=== PATIENT | male | born 1995 | race Caucasian/White ===

== ENCOUNTER 2018-05-28 15:47 | Emergency (ER) | payer OTHER ==
[2018-05-28 15:52] VITALS: BP 142/89
--- NOTE | 2018-05-28 15:58 | ER Report ---
History and Physical Time Seen By MD: 15:59 Hx. of Stated Complaint: pain for 2 months in left side; blood in stool this am; states that it has never happened before; current pain is dull and 3/10 HPI/ROS CHIEF COMPLAINT: Abdominal pain HISTORY OF PRESENT ILLNESS: 22-year-old male patient presents to emergency room with complaint of abdominal pain. Patient states pains been going on for the last 2 months. Patient states that he has noted the pain when he is at school, at night. He states he is not been able to lay on his right side as that intensifies the pain. He states that he has not taken any medication for this. He states he said come in today because this morning he had blood in the toilet when he had a bowel movement. He states that it never happened previously. He denies any changes in the color of his stool. He states that he is not had any fevers or chills. He denies having any changes in his weight. He states that she's not had any changes in his diet, although he has had less of an appetite in the last few days. REVIEW OF SYSTEMS: Respiratory: No cough, no dyspnea. Cardiovascular: No chest pain, no palpitations. Gastrointestinal: As noted above Musculoskeletal: No back pain. Allergies: Coded Allergies: No Known Drug Allergies (Unverified , 05/28/18) Home Meds Active Scripts Omeprazole (OMEPRAZOLE) 40 Mg Capsule.dr, 40 MG PO QDAY, #30 CAP Prov:CORTEZ MERCER [facility] 05/28/18 Sucralfate (CARAFATE) 1 Gm Tablet, 1 GM PO QID, #60 TAB Take before meals and at bedtime. Crush the tablet and mix with water before taking. Prov:CORTEZ MERCER [facility] 05/28/18 Past Medical/Surgical History Patient has a past medical history of ADHD, fracture the right hand. Patient denies any surgical history. Patient states he has a family medical history of colon cancer. Reviewed Nurses Notes: Yes Constitutional Vital Sign - Last 24 Hours 05/28/18 15:52 Temp 98.1 Pulse 59 Resp 16 B/P (MAP) 142/89 Pulse Ox 93 O2 Delivery Room Air Physical Exam General Appearance: The patient is alert, has no immediate need for airway protection and no current signs of toxicity. Respiratory: Chest is non tender, lungs are clear to auscultation. Cardiac: regular rate and rhythm Gastrointestinal: Abdomen is soft and non tender, no masses, bowel sounds normal. Rectal exam was done patient did have what appeared to be blood. Musculoskeletal: Neck: Neck is supple and non tender. Extremities have full range of motion and are non tender. Skin: No rashes or lesions. DIFFERENTIAL DIAGNOSIS: After history and physical exam differential diagnosis was considered for abdominal pain including but not limited to appendicitis, cholecystitis, gastritis and urinary tract infection. Medical Decision Making Data Points Result Diagram: 05/28/18 1600 05/28/18 1600 Laboratory Hematology Test 05/28/18 15:52 05/28/18 16:00 05/28/18 16:11 Urine Color Straw Urine Clarity Clear Urine pH 6.0 pH (4.8-9.5) Urine Specific Wentworth 1.006 Urine Protein Negative mg/dL (NEGATIVE) Urine Glucose (UA) Negative mg/dL (NEGATIVE) Urine Ketones Negative mg/dL (NEGATIVE) Urine Blood Negative (NEGATIVE) Urine Nitrite Negative (NEGATIVE) Urine Bilirubin Negative (NEGATIVE) Urine Urobilinogen Negative mg/dL (0.2-1.9) Urine Leukocyte Esterase Negative (NEGATIVE) Urine RBC <1 /HPF (0-2/HPF) Urine WBC <1 /HPF (0-5/HPF) Urine Squamous Epithelial Cells None /LPF (</=FEW) Urine Bacteria Negative /HPF (NONE-FEW) Urine Mucus None /HPF (NONE-FEW) Red Blood Count 4.80 M/uL (4.00-5.60) Mean Corpuscular Volume 94.1 fL (80.0-96.0) Mean Corpuscular Hemoglobin 33.6 pg (26.0-33.0) Mean Corpuscular Hemoglobin Concent 35.7 g/dL (32.0-36.0) Red Cell Distribution Width 12.2 % (11.5-14.5) Mean Platelet Volume 7.8 fL (7.2-11.1) Neutrophils (%) (Auto) 65.8 % (39.4-72.5) Lymphocytes (%) (Auto) 21.6 % (17.6-49.6) Monocytes (%) (Auto) 11.3 % (4.1-12.4) Eosinophils (%) (Auto) 0.8 % (0.4-6.7) Basophils (%) (Auto) 0.5 % (0.3-1.4) Nucleated RBC Relative Count (auto) 0.0 /100WBC Neutrophils # (Auto) 4.1 K/uL (2.0-7.4) Lymphocytes # (Auto) 1.4 K/uL (1.3-3.6) Monocytes # (Auto) 0.7 K/uL (0.3-1.0) Eosinophils # (Auto) 0.0 K/uL (0.0-0.5) Basophils # (Auto) 0.0 K/uL (0.0-0.1) Nucleated RBC Absolute Count (auto) 0.00 K/uL Prothrombin Time 13.3 seconds (12.0-14.4) Prothromb Time International Ratio 1.01 Activated Partial Thromboplast Time 30 seconds (23-35) Sodium Level 141 mmol/L (137-145) Potassium Level 4.3 mmol/L (3.5-5.0) Chloride Level 101 mmol/L (98-107) Carbon Dioxide Level 30 mmol/L (22-30) Blood Urea Nitrogen 23 mg/dl (9-21) Creatinine 1.10 mg/dl (0.66-1.25) Glomerular Filtration Rate Calc > 60.0 Random Glucose 76 mg/dl (75-110) Calcium Level 9.7 mg/dl (8.4-10.2) Total Bilirubin 0.8 mg/dl (0.2-1.3) Aspartate Amino Transf (AST/SGOT) 63 U/L (0-35) Alanine Aminotransferase (ALT/SGPT) 47 U/L (0-56) Alkaline Phosphatase 45 U/L (0-126) C-Reactive Protein < 0.5 mg/dl (<1.0) Total Protein 7.5 g/dl (6.3-8.2) Albumin 4.6 g/dl (3.5-5.0) Amylase Level 84 U/L (0-110) Lipase 102 U/L (23-300) Helicobacter pylori IgG Antibody Negative (NEGATIVE) Monoscreen Negative (NEGATIVE) Stool Occult Blood (IFOB) Positive (NEGATIVE) Chemistry Test 05/28/18 15:52 05/28/18 16:00 05/28/18 16:11 Urine Color Straw Urine Clarity Clear Urine pH 6.0 pH (4.8-9.5) Urine Specific Wentworth 1.006 Urine Protein Negative mg/dL (NEGATIVE) Urine Glucose (UA) Negative mg/dL (NEGATIVE) Urine Ketones Negative mg/dL (NEGATIVE) Urine Blood Negative (NEGATIVE) Urine Nitrite Negative (NEGATIVE) Urine Bilirubin Negative (NEGATIVE) Urine Urobilinogen Negative mg/dL (0.2-1.9) Urine Leukocyte Esterase Negative (NEGATIVE) Urine RBC <1 /HPF (0-2/HPF) Urine WBC <1 /HPF (0-5/HPF) Urine Squamous Epithelial Cells None /LPF (</=FEW) Urine Bacteria Negative /HPF (NONE-FEW) Urine Mucus None /HPF (NONE-FEW) White Blood Count 6.3 k/uL (4.5-11.0) Red Blood Count 4.80 M/uL (4.00-5.60) Hemoglobin 16.2 g/dL (14.0-18.0) Hematocrit 45.2 % (42.0-52.0) Mean Corpuscular Volume 94.1 fL (80.0-96.0) Mean Corpuscular Hemoglobin 33.6 pg (26.0-33.0) Mean Corpuscular Hemoglobin Concent 35.7 g/dL (32.0-36.0) Red Cell Distribution Width 12.2 % (11.5-14.5) Platelet Count 212 K/uL (150-450) Mean Platelet Volume 7.8 fL (7.2-11.1) Neutrophils (%) (Auto) 65.8 % (39.4-72.5) Lymphocytes (%) (Auto) 21.6 % (17.6-49.6) Monocytes (%) (Auto) 11.3 % (4.1-12.4) Eosinophils (%) (Auto) 0.8 % (0.4-6.7) Basophils (%) (Auto) 0.5 % (0.3-1.4) Nucleated RBC Relative Count (auto) 0.0 /100WBC Neutrophils # (Auto) 4.1 K/uL (2.0-7.4) Lymphocytes # (Auto) 1.4 K/uL (1.3-3.6) Monocytes # (Auto) 0.7 K/uL (0.3-1.0) Eosinophils # (Auto) 0.0 K/uL (0.0-0.5) Basophils # (Auto) 0.0 K/uL (0.0-0.1) Nucleated RBC Absolute Count (auto) 0.00 K/uL Prothrombin Time 13.3 seconds (12.0-14.4) Prothromb Time International Ratio 1.01 Activated Partial Thromboplast Time 30 seconds (23-35) Glomerular Filtration Rate Calc > 60.0 Calcium Level 9.7 mg/dl (8.4-10.2) Total Bilirubin 0.8 mg/dl (0.2-1.3) Aspartate Amino Transf (AST/SGOT) 63 U/L (0-35) Alanine Aminotransferase (ALT/SGPT) 47 U/L (0-56) Alkaline Phosphatase 45 U/L (0-126) C-Reactive Protein < 0.5 mg/dl (<1.0) Total Protein 7.5 g/dl (6.3-8.2) Albumin 4.6 g/dl (3.5-5.0) Amylase Level 84 U/L (0-110) Lipase 102 U/L (23-300) Helicobacter pylori IgG Antibody Negative (NEGATIVE) Monoscreen Negative (NEGATIVE) Stool Occult Blood (IFOB) Positive (NEGATIVE) Coagulation Test 05/28/18 16:00 Prothrombin Time 13.3 seconds Prothromb Time International Ratio 1.01 Activated Partial Thromboplast Time 30 seconds Urinalysis Test 05/28/18 15:52 Urine Color Straw Urine Clarity Clear Urine pH 6.0 pH (4.8-9.5) Urine Specific Wentworth 1.006 Urine Protein Negative mg/dL (NEGATIVE) Urine Glucose (UA) Negative mg/dL (NEGATIVE) Urine Ketones Negative mg/dL (NEGATIVE) Urine Blood Negative (NEGATIVE) Urine Nitrite Negative (NEGATIVE) Urine Bilirubin Negative (NEGATIVE) Urine Urobilinogen Negative mg/dL (0.2-1.9) Urine Leukocyte Esterase Negative (NEGATIVE) Urine RBC <1 /HPF (0-2/HPF) Urine WBC <1 /HPF (0-5/HPF) Urine Squamous Epithelial Cells None /LPF (</=FEW) Urine Bacteria Negative /HPF (NONE-FEW) Urine Mucus None /HPF (NONE-FEW) EKG/Imaging Imaging CT abdomen and pelvis with IV contrast Indication: Left-sided abdominal pain. Comparison: None available. . Technique: Axial CT images were obtained through the abdomen and pelvis during injection of nonionic iodinated intravenous contrast. Reformatted coronal and sagittal images were also obtained. One of the following dose optimization techniques was utilized in the performanc e of this exam: Automated exposure control; adjustment of the mA and/or kV according to the patient's size; or use of an iterative reconstruction technique. Specific details can be referenced in the facility's radiology CT exam operational policy. Contrast: 75 ml of Isovue-370 IV contrast. Findings: Lower lung cespedes: Limited views lower lung field are unremarkable. Liver: No focal parenchymal abnormality of the liver. Biliary: Gallbladder appears unremarkable as well as the intra and extra hepatic biliary system. Pancreas: Normal appearance. Spleen: Normal appearance. Adrenal glands: Unremarkable. Kidneys / retroperitoneum: No evidence of nephrolithiasis or hydronephrosis. No focal abnormality. Bowel / peritoneum / mesenteries: Prominent stool seen throughout the colon more so from the ascending colon to the splenic flexure region. The stomach is filled with debris shows no focal normality. The small bowel shows no focal normality or obstruction. The appendix is normal. The colon shows no focal abnormality or dilatation. No free air, free fluid, fluid collections or areas of inflammation. Lymph node assessment: No pathologic adenopathy identified. Pelvic structures: Appear unremarkable. Vessels: No significant atherosclerotic calcifications seen throughout a nonaneurysmal abdominal aorta and branches. Musculoskeletal / Body wall: No acute or aggressive osseous abnormality. Bilateral pars defect L5 level causing mild anterior spondylolisthesis of L5 over S1 of 5.3 mm. IMPRESSION: 1. No acute intra-abdominal abnormality. There is prominent stool seen throughout colon especially from the ascending to the splenic flexure region. The colon shows no focal normality. No obstruction. 2. Bilateral pars defect at the L5 level causing mild anterior spondylolisthesis of L5 over S1 of 5.3 mm. Report Dictated By: Salvador Mishra at 05/28/2018 5:35 PM Report E-Signed By: Salvador Mishra at 05/28/2018 5:41 PM ED Course/Re-evaluation ED Course Patient was admitted to an exam room, history and physical were obtained. Differential diagnoses were considered. On examination lungs are clear, heart is regular, abdomen is soft nontender. I was unable to elucidate any discomfort with palpation especially in the left upper quadrant. With patient having a history of blood in the stool as well as a family history of colon cancer especially in a cousin that was 25 years old when he was diagnosed I did opt to do a CT scan to make sure there is not any obvious mass noted in his abdomen. A CBC, CMP, CRP, PT, PTT, occult stool were done. Lab work was unremarkable except patient did have blood in the stool. CT scan showed a large stool burden throughout the colon. I discussed findings with patient. I believe that he does have constipation which is causing the pain. However with him having blood in his stool I would like him follow-up with either gastroenterology in [place] or with a general surgeon here in [place] for colonoscopy. Patient verbalized understanding and agreement with plan. Decision to Disposition Date: May 28, 2018 Decision to Disposition Time: 17:59 Depart Departure Latest Vital Signs Vital Signs Date Time Temp Pulse Resp B/P (MAP) Pulse Ox O2 Delivery O2 Flow Rate FiO2 05/28/18 15:52 98.1 59 16 142/89 93 Room Air Impression: Primary Impression: GI bleed Additional Impression: Constipation Condition: Improved Disposition: HOME OR SELF-CARE New Scripts Omeprazole (OMEPRAZOLE) 40 Mg Capsule. 40 MG PO QDAY, #30 CAP Prov: CORTEZ MERCER [facility] 05/28/18 Sucralfate (CARAFATE) 1 Gm Tablet 1 GM PO QID, #60 TAB Take before meals and at bedtime. Crush the tablet and mix with water before taking. Prov: CORTEZ MERCER [facility] 05/28/18 Patient Instructions: Gastrointestinal Bleeding (ED) Additional Instructions: Increase fluid intake. Take the Magnesium Citrate when you get home. Take the medication as directed. Return to the ER if condition worsens. Follow up with either: Dr. Hernandez [id number] or [facility] [address] [place] [address]. [place], [place] Problem Qualifiers Primary Impression: GI bleed GI bleed type/associated pathology: unspecified gastrointestinal hemorrhage type Qualified Codes: K92.2 - Gastrointestinal hemorrhage, unspecified Additional Impression: Constipation Constipation type: unspecified constipation type Qualified Codes: K59.00 - Constipation, unspecified CORTEZ MERCER [facility] May 28, 2018 15:58
[2018-05-28] MEDS ORDERED: NS(*) 0.9% 1000 ML BAG 1,000 ML IV ONE (16:07)
[2018-05-28] MEDS ORDERED: IOPAMIDOL 76% 75 ML INFUS BTL 75 ML ONE (16:29)
[2018-05-28 16:31] LABS: PLATELET COUNT, AUTOMATED 212 K/uL (150-450)
[2018-05-28 16:46] LABS: INR 1.01
--- NOTE | 2018-05-28 17:45 | RADIOLOGY IMAGING REPORT ---
FACILITY: [facility] [place] PATIENT NAME: Carl Dunlap : 1995 MR: [id number] V: [id number] EXAM DATE: ORDERING PHYSICIAN: CORTEZ MERCER TECHNOLOGIST: Location: [facility] [place] Patient: Carl Dunlap : 1995 Visit/Account:[id number] Date of Sevice: 05/28/2018 CT abdomen and pelvis with IV contrast Indication: Left-sided abdominal pain. Comparison: None available. . Technique: Axial CT images were obtained through the abdomen and pelvis during injection of nonioni c iodinated intravenous contrast. Reformatted coronal and sagittal images were also obtained. One of the following dose optimization techniques was utilized in the performance of this exam: Autom ated exposure control; adjustment of the mA and/or kV according to the patient's size; or use of an i terative reconstruction technique. Specific details can be referenced in the facility's radiology C T exam operational policy. Contrast: 75 ml of Isovue-370 IV contrast. Findings: Lower lung cespedes: Limited views lower lung field are unremarkable. Liver: No focal parenchymal abnormality of the liver. Biliary: Gallbladder appears unremarkable as well as the intra and extra hepatic biliary system. Pancreas: Normal appearance. Spleen: Normal appearance. Adrenal glands: Unremarkable. Kidneys / retroperitoneum: No evidence of nephrolithiasis or hydronephrosis. No focal abnormality. Bowel / peritoneum / mesenteries: Prominent stool seen throughout the colon more so from the ascendin g colon to the splenic flexure region. The stomach is filled with debris shows no focal normality. Th e small bowel shows no focal normality or obstruction. The appendix is normal. The colon shows no foc al abnormality or dilatation. No free air, free fluid, fluid collections or areas of inflammation. Lymph node assessment: No pathologic adenopathy identified. Pelvic structures: Appear unremarkable. Vessels: No significant atherosclerotic calcifications seen throughout a nonaneurysmal abdominal aort a and branches. Musculoskeletal / Body wall: No acute or aggressive osseous abnormality. Bilateral pars defect L5 lev el causing mild anterior spondylolisthesis of L5 over S1 of 5.3 mm. IMPRESSION: 1. No acute intra-abdominal abnormality. There is prominent stool seen throughout colon especially fr om the ascending to the splenic flexure region. The colon shows no focal normality. No obstruction. 2. Bilateral pars defect at the L5 level causing mild anterior spondylolisthesis of L5 over S1 of 5.3 mm. Report Dictated By: Salvador Mishra at 05/28/2018 5:35 PM Report E-Signed By: Salvador Mishra at 05/28/2018 5:41 PM WSN:[id number]
[2018-05-28] MEDS ORDERED: SUCR1TAB85 PO (17:54)
[2018-05-28] MEDS ORDERED: OMEP40CA48 PO (17:54)
[2018-05-28] MEDS ORDERED: SUCRALFATE 1 GM TAB PO ONE (17:55)
[2018-05-28] MEDS ORDERED: MAGNESIUM CITRATE 300 ML BTL PO ONE (17:55)
[2018-05-28] MEDS ORDERED: PANTOPRAZOLE SOD 40 MG TABEC PO ONE (17:55)
== END 2018-05-28 18:27 | disposition home or self-care (01) ==
LOC: ER 16:27
DX: K92.2 Gastrointestinal hemorrhage, unspecified (principal); K59.00 Constipation, unspecified
CPT/HCPCS: 74177; 81001; 82150; 82274; 83690; 85025; 85610; 85730; 86140; 86308; 86677; 99284; J7030; Q9967; 82040; 82247; 82310; 82374; 82435; 82565; 82947; 84075; 84132; 84155; 84295; 84450; 84460; 84520

== ENCOUNTER 2018-09-09 21:29 | Emergency (ER) | payer OTHER ==
[~2018-09-09 21:29] MED LIST: OMEP40CA48 PO; SUCR1TAB85 PO
--- NOTE | 2018-09-09 21:42 | ER Report ---
History and Physical Time Seen By MD: 21:42 Hx. of Stated Complaint: patient states really bad migraine since about 2pm, patient has taken excedrin. states has history of migraines, but never one this bad. patient states nausea and vomiting. HPI/ROS CHIEF COMPLAINT: headache HISTORY OF PRESENT ILLNESS: This is a 23 year old male. He has a history of migraine headaches, has history of these several times a week. Had been taking large amounts of Excedrin to treat these, but has made adjustments to the amount of Excedrin he was using and decreasing coffee intake and seemed to have less headaches. Had see doctors in the past for these and was prescribed a medicine to help decrease the frequency of headaches, but never filled the medicine. Unsure what it was. He had the current headache start at 1400 hours today. Immediately took 4 over the counter Excedrin at that time, because it was more severe than usual. Did no help so took another two Excedrin about an hour after this. During the intervening time, he took another 4 tablets, uncertain about exact times. He knows that he took 10 of the Excedrin tablets since 1400 when the headache started. He is feeling a little out of it right now, difficulty concentrating. He feels some tingling in both hands. No problems with weakness in the arms or legs. Had normal loss of vision, scotoma, prior to the headache, which is his usual prodrome for the headache. Headache is on the right side, similar to priors, but a little worse. He has had nausea with headaches in the past, but has never had emesis, which was worrisome to him. No other illnesses, fevers or chills, cough, sore throat, runny nose. Normal bowel and bladder. Allergies: Coded Allergies: No Known Drug Allergies (Unverified , 09/09/18) Home Meds Discontinued Scripts Omeprazole (OMEPRAZOLE) 40 Mg Capsule., 40 MG PO QDAY, #30 CAP Prov:CORTEZ MERCER 05/28/18 Sucralfate (CARAFATE) 1 Gm Tablet, 1 GM PO QID, #60 TAB Take before meals and at bedtime. Crush the tablet and mix with water before taking. Prov:CORTEZ MERCER 05/28/18 Reviewed Nurses Notes: Yes Constitutional Vital Sign - Last 24 Hours 09/09/18 09/09/18 09/09/18 09/09/18 21:33 21:44 21:59 22:00 Temp 97.8 Pulse 69 52 48 Resp 12 B/P (MAP) 139/85 110/72 (85) Pulse Ox 94 87 90 O2 Delivery Room Air 09/09/18 09/09/18 09/09/18 09/09/18 22:14 22:29 22:30 22:38 Pulse 59 52 B/P (MAP) 126/73 (90) 127/72 (90) Pulse Ox 97 95 09/09/18 09/09/18 09/09/18 09/09/18 22:43 22:58 23:00 23:14 Pulse 64 55 B/P (MAP) 126/69 (88) 120/72 (88) Pulse Ox 95 93 09/09/18 09/09/18 09/10/18 23:28 23:30 00:12 Pulse 53 50 B/P (MAP) 105/54 (71) 130/111 (117) Pulse Ox 92 94 Intake and Output 09/09/18 09/09/18 09/10/18 15:00 23:00 07:00 Intake Total 1000 ml Balance 1000 ml Physical Exam General Appearance: The patient is alert. No acute distress. Eyes: Pupils are equal, round. Reactive to light. No pallor, injection or icterus. Extraocular movements are intact. ENT: Mucous membranes are moist. Normal oral mucosa. Posterior oropharynx is normal. Neck: Supple and non tender. Respiratory: Lungs are clear to auscultation. Cardiovascular: Regular rate and rhythm. No murmurs, gallops or rubs. Normal capillary refill. Gastrointestinal: Abdomen is soft and non tender. Nondistended. Normal active bowel sounds. Neurological: Alert and oriented x3. Cranial nerves II through XII show no acute deficits on my exam. Has some tingling in hands, otherwise negative extremities. Skin: Warm and dry. Musculoskeletal: No tenderness in palpation of the cervical, thoracic and lumbar spine. DIFFERENTIAL DIAGNOSIS: After history and physical exam, differential diagnosis was considered for headache including but not limited to migraine headache. Discussed doing lab work and head CT scan to look for other causes. He indicated he has had multiple lab tests in the past, all of which were negative. We talked about doing medications to help relieve pain and re-evaluate with imaging if not improving. Medical Decision Making Data Points Result Diagram: 09/09/18213709/09/182137 Laboratory Hematology Test 09/09/18 21:38 Red Blood Count 5.09 M/uL (4.00-5.60) Mean Corpuscular Volume 95.8 fL (80.0-96.0) Mean Corpuscular Hemoglobin 33.4 pg (26.0-33.0) Mean Corpuscular Hemoglobin Concent 34.8 g/dL (32.0-36.0) Red Cell Distribution Width 12.8 % (11.5-14.5) Mean Platelet Volume 7.9 fL (7.2-11.1) Neutrophils (%) (Auto) 85.2 % (39.4-72.5) Lymphocytes (%) (Auto) 10.3 % (17.6-49.6) Monocytes (%) (Auto) 4.1 % (4.1-12.4) Eosinophils (%) (Auto) 0.1 % (0.4-6.7) Basophils (%) (Auto) 0.3 % (0.3-1.4) Nucleated RBC Relative Count (auto) 0.0 /100WBC Neutrophils # (Auto) 7.4 K/uL (2.0-7.4) Lymphocytes # (Auto) 0.9 K/uL (1.3-3.6) Monocytes # (Auto) 0.4 K/uL (0.3-1.0) Eosinophils # (Auto) 0.0 K/uL (0.0-0.5) Basophils # (Auto) 0.0 K/uL (0.0-0.1) Nucleated RBC Absolute Count (auto) 0.00 K/uL Erythrocyte Sedimentation Rate 1 mm/HOUR (0-15) Sodium Level 138 mmol/L (137-145) Potassium Level 3.8 mmol/L (3.5-5.0) Chloride Level 99 mmol/L (98-107) Carbon Dioxide Level 25 mmol/L (22-30) Blood Urea Nitrogen 18 mg/dl (9-21) Creatinine 1.10 mg/dl (0.66-1.25) Glomerular Filtration Rate Calc > 60.0 Random Glucose 95 mg/dl (75-110) Calcium Level 10.3 mg/dl (8.4-10.2) Total Bilirubin 2.0 mg/dl (0.2-1.3) Aspartate Amino Transf (AST/SGOT) 52 U/L (0-35) Alanine Aminotransferase (ALT/SGPT) 39 U/L (0-56) Alkaline Phosphatase 75 U/L (0-126) Total Protein 8.1 g/dl (6.3-8.2) Albumin 5.3 g/dl (3.5-5.0) Salicylates Level 137 mg/L Salicylate Last Dose Date unk Acetaminophen Level < 10 ug/ml Chemistry Test 09/09/18 21:38 White Blood Count 8.6 k/uL (4.5-11.0) Red Blood Count 5.09 M/uL (4.00-5.60) Hemoglobin 17.0 g/dL (14.0-18.0) Hematocrit 48.8 % (42.0-52.0) Mean Corpuscular Volume 95.8 fL (80.0-96.0) Mean Corpuscular Hemoglobin 33.4 pg (26.0-33.0) Mean Corpuscular Hemoglobin Concent 34.8 g/dL (32.0-36.0) Red Cell Distribution Width 12.8 % (11.5-14.5) Platelet Count 227 K/uL (150-450) Mean Platelet Volume 7.9 fL (7.2-11.1) Neutrophils (%) (Auto) 85.2 % (39.4-72.5) Lymphocytes (%) (Auto) 10.3 % (17.6-49.6) Monocytes (%) (Auto) 4.1 % (4.1-12.4) Eosinophils (%) (Auto) 0.1 % (0.4-6.7) Basophils (%) (Auto) 0.3 % (0.3-1.4) Nucleated RBC Relative Count (auto) 0.0 /100WBC Neutrophils # (Auto) 7.4 K/uL (2.0-7.4) Lymphocytes # (Auto) 0.9 K/uL (1.3-3.6) Monocytes # (Auto) 0.4 K/uL (0.3-1.0) Eosinophils # (Auto) 0.0 K/uL (0.0-0.5) Basophils # (Auto) 0.0 K/uL (0.0-0.1) Nucleated RBC Absolute Count (auto) 0.00 K/uL Erythrocyte Sedimentation Rate 1 mm/HOUR (0-15) Glomerular Filtration Rate Calc > 60.0 Calcium Level 10.3 mg/dl (8.4-10.2) Total Bilirubin 2.0 mg/dl (0.2-1.3) Aspartate Amino Transf (AST/SGOT) 52 U/L (0-35) Alanine Aminotransferase (ALT/SGPT) 39 U/L (0-56) Alkaline Phosphatase 75 U/L (0-126) Total Protein 8.1 g/dl (6.3-8.2) Albumin 5.3 g/dl (3.5-5.0) Salicylates Level 137 mg/L Salicylate Last Dose Date unk Acetaminophen Level < 10 ug/ml Toxicology Test 09/09/18 21:38 Salicylates Level 137 mg/L Salicylate Last Dose Date unk Acetaminophen Level < 10 ug/ml EKG/Imaging Imaging CT Head without contrast Indication: Headache for 3 hours. Comparison: None available. Technique: Axial CT images were obtained through the brain from the skull base to the vertex without administration of IV contrast. One of the following dose optimization techniques was utilized in the performance of this exam: Automated exposure control; adjustment of the mA and/or kV according to the patient's size; or use of an iterative reconstruction technique. Specific details can be referenced in the facility's radiology CT exam operational policy. Findings: No evidence of mass, mass effect, or midline shift. No acute intracranial hemorrhage or acute territorial infarction. Skull is nonacute. Globes and orbits are normal. Retention cysts and a small amount of fluid in the right maxillary sinus. Mild mucosal thickening in the left maxillary sinus. Paranasal sinuses and mastoid air spaces are otherwise grossly clear. IMPRESSION: 1. No acute intracranial abnormality. 2. Paranasal sinus disease with possible mild acute component in the right maxillary sinus. Report Dictated By: Tevin Santana MD at 09/09/2018 11:17 PM ED Course/Re-evaluation Clinical Indication for ER IV: Hydration, IV Access ED Course After my initial discussion, we went ahead and ordered a liter of normal saline as well as Phenergan 12.5 mg IV, Benadryl 25 mg IV, and Toradol 30 mg IV. The patient did have some myoclonic jerking after the Phenergan which did resolve after a period of time. I reevaluated the patient and didn't see any new neurologic changes, he was very tired after the Phenergan. Laboratory studies were obtained which were unremarkable and CT scan of his head also was unremarkable. Reevaluated later on that evening, he had a chance to sleep, was feeling better, still mild headache but improved from previously. No further nausea. Discussed results of labs and imaging, the patient was discharged home. Recommended following up with primary care to discuss further treatment for prevention or treatment of migraines with happen. Decision to Disposition Date: Sep 10, 2018 Decision to Disposition Time: 00:07 Depart Departure Latest Vital Signs Vital Signs Date Time Temp Pulse Resp B/P (MAP) Pulse Ox O2 Delivery O2 Flow Rate FiO2 09/10/18 00:12 50 130/111 (117) 94 09/09/18 21:33 97.8 12 Room Air Impression: Primary Impression: Migraine headache Condition: Improved Disposition: HOME OR SELF-CARE New Scripts No Active Prescriptions or Reported Meds Patient Instructions: Migraine Headache (ED) Additional Instructions: If headaches persist and are frequent, trial of medication to prevent the headaches can be considered. Please follow-up with a primary care provider or a neurologist who deals with headaches to discuss this further. Try not to overuse the Excedrin or other over the counter pain medications. Rest and increase fluid intake tomorrow. Labs and imaging were negative tonight. You can return to the ER for re-evaluation for worsening symptoms. Problem Qualifiers Primary Impression: Migraine headache Migraine type: with aura Status migrainosus presence: without status migrainosus Intractability: not intractable Qualified Codes: G43.109 - Migraine with aura, not intractable, without status migrainosus TUSHAR BANG MD Sep 09, 2018 21:42
[2018-09-09] MEDS ORDERED: PROMETHAZINE 25 MG/ML 1 ML AMP IVP ONE (21:55)
[2018-09-09] MEDS ORDERED: KETOROLAC 30 MG/ML VIAL IVP ONE (21:55)
[2018-09-09] MEDS ORDERED: NS(*) 0.9% 1000 ML BAG 1,000 ML IV ONE (21:55)
[2018-09-09] MEDS ORDERED: diphenhydrAMINE 50 MG/ML VIAL IVP ONE (21:55)
[2018-09-09 22:09] LABS: PLATELET COUNT, AUTOMATED 227 K/uL (150-450)
--- NOTE | 2018-09-09 23:27 | RADIOLOGY IMAGING REPORT ---
FACILITY: [facility] PATIENT NAME: Carl Dunlap : 1995 MR: [id number] V: [id number] EXAM DATE: ORDERING PHYSICIAN: TUSHAR BANG TECHNOLOGIST: Location: [facility] [place] Patient: Carl Dunlap : 1995 Visit/Account:[id number] Date of Sevice: 09/09/2018 CT Head without contrast Indication: Headache for 3 hours. Comparison: None available. Technique: Axial CT images were obtained through the brain from the skull base to the vertex without administration of IV contrast. One of the following dose optimization techniques was utilized in th e performance of this exam: Automated exposure control; adjustment of the mA and/or kV according to t he patient's size; or use of an iterative reconstruction technique. Specific details can be referen pepe in the facility's radiology CT exam operational policy. Findings: No evidence of mass, mass effect, or midline shift. No acute intracranial hemorrhage or acute territorial infarction. Skull is nonacute. Globes and orbits are normal. Retention cysts and a small amount of fluid in the right maxillary sinus. Mild mucosal thickening in the left maxillary sinus. Paranasal sinuses and mastoid air spaces are otherwise grossly clear. IMPRESSION: 1. No acute intracranial abnormality. 2. Paranasal sinus disease with possible mild acute component in the right maxillary sinus. Report Dictated By: Tevin Santana MD at 09/09/2018 11:17 PM Report E-Signed By: Tevin Santana MD at 09/09/2018 11:23 PM WSN:[id number]
[2018-09-10 00:12] VITALS: BP 130/111
== END 2018-09-10 00:14 | disposition home or self-care (01) ==
LOC: ER 22:20
DX: G43.109 Migraine with aura, not intractable, without status migrainosus (principal)
CPT/HCPCS: 70450; 80329; 85025; 85651; 96361; 96374; 96375; 99284; J1200; J1885; J2550; J7030; 82040; 82247; 82310; 82374; 82435; 82565; 82947; 84075; 84132; 84155; 84295; 84450; 84460; 84520